=== PATIENT | female | born 1970 | race Caucasian/White ===

== ENCOUNTER 2017-08-26 10:03 | Emergency (ER) | payer OTHER ==
[~2017-08-26] VITALS: Ht 160 cm; Wt 51.9 kg
[2017-08-26 12:01] LABS: HEMATOCRIT 36.6 % (36.0-46.0); HEMOGLOBIN 12.1 G/DL (11.9-15.5); MCH 27.5 PG (29.0-34.0); MCHC 33.1 G/DL (30.0-36.0); MCV 83.2 FL (83-99); PLATELET COUNT 269 K/uL (156-360); RBC DIS.WIDTH-CV 13.3 % (11.8-14.6); RBC DIS.WIDTH-SD 40.3 % (39-53); WHITE BLOOD COUNT 7.3 K/uL (4.1-10.2)
[2017-08-26 12:12] LABS: ALBUMIN 4.3 g/dL (3.2-4.8); CHLORIDE 107 mEq/L (99-109); POTASSIUM 4.4 mEq/L (3.7-5.4); SODIUM 137 mEq/L (136-147)
[2017-08-26 12:14] LABS: GLUCOSE 124 mg/dL (70-99)
[2017-08-26 12:15] LABS: TOTAL PROTEIN 7.8 g/dL (6.4-8.3)
[2017-08-26 12:16] LABS: TOTAL BILIRUBIN 0.3 mg/dL (0.0-1.0)
[2017-08-26 12:18] LABS: ALKALINE PHOSPHATASE 75 IU/L (3-129); CREATININE 0.7 mg/dL (0.6-1.3); GFR ESTIMATE (CALCULATED) > 59 mL/min/
[2017-08-26 12:19] LABS: UREA NITROGEN (BUN) 14 mg/dL (9-23)
[2017-08-26 12:20] LABS: AST (GOT) 20 IU/L (2-34)
[2017-08-26 12:21] LABS: ALT (GPT) 14 IU/L (3-49); LIPASE 23 U/L (1.0-51.0)
[2017-08-26 12:27] LABS: QUANTITATIVE HCG < 4.0 MIU/ML
[2017-08-26 14:21] LABS: TROP-I INTERPRETATION NEGATIVE; TROPONIN-I < 0.01 ng/mL (0.0-0.30)
[2017-08-26 14:31] VITALS: BP 105/69
== END 2017-08-26 17:04 | disposition home or self-care (01) ==
LOC: RME 10:03 → EME 10:03 → RME 17:04
DX: R10.13 Epigastric pain (principal); M54.9 Dorsalgia, unspecified; Z98.51 Tubal ligation status; Z53.20 Procedure and treatment not carried out because of patient's decision for unspecified reasons
CPT/HCPCS: 80053; 81003; 83690; 84484; 84702; 85027; 93005